=== PATIENT | female | born 2000 | race Caucasian/White ===

== ENCOUNTER 2020-09-29 20:43 | Emergency (ER) | payer OTHER ==
[~2020-09-29] VITALS: Ht 165.1 cm; Wt 79.4 kg
[2020-09-29 21:19] VITALS: BP 107/52
[2020-09-29] MEDS ORDERED: NACL 0.9% 1,000 ML IV SCH (22:10)
[2020-09-29 22:28] LABS: BASOPHILS % (AUTO) 0.2 % (0.0-2.0); EOSINOPHILS # (AUTO) 0.2 K/uL (0-0.4); EOSINOPHILS % (AUTO) 1.1 % (0.0-4.0); HEMATOCRIT 38.7 % (36-48); LYMPHOCYTES # (AUTO) 3.3 K/uL (2.5-16.5); LYMPHOCYTES % (AUTO) 22.7 % (20.5-51.1); MEAN CORPUSCULAR HEMOGLOBIN 31 pg (27-31); MEAN CORPUSCULAR HGB CONC 34 g/dL (33-37); MEAN CORPUSCULAR VOLUME 92.4 fL (80-94); MONOCYTES # (AUTO) 1.5 K/uL (0.8-1.0); MONOCYTES % (AUTO) 10.3 % (1.7-9.3); NEUTROPHILS # (AUTO) 9.5 K/uL (1.8-7.7); NEUTROPHILS % (AUTO) 65.7 % (42.2-75.2); PLATELET COUNT (AUTO) 336 K/uL (140-450); RED BLOOD CELL COUNT(AUTO) 4.19 MIL/uL (4.20-5.40); RED CELL DISTRIBUTION WIDTH 13.5 % (11.6-13.7); WHITE BLOOD COUNT (AUTO) 14.5 K/uL (4.8-10.8)
[2020-09-29 22:40] LABS: ALBUMIN 3.6 g/dL (3.4-5.0); ANION GAP 9.8 (8-16); CARBON DIOXIDE 27.8 mmol/L (21-32); CREATININE 0.9 mg/dL (0.6-1.3); POTASSIUM 3.6 mmol/L (3.5-5.1); TOTAL BILIRUBIN 0.3 mg/dL (0.0-1.0)
[2020-09-29 23:05] LABS: APPEARANCE,URINE SL CLOUDY (CLEAR); BILIRUBIN,URINE NEGATIVE (NEGATIVE); BLOOD, URINE 2+ (NEGATIVE); COLOR,URINE YELLOW (YELLOW); LEUKOCYTE ESTERASE ,URINE 1+ (NEGATIVE); NITRITE, URINE NEGATIVE (NEGATIVE); UGLUCOSE NEGATIVE (NEGATIVE)
[2020-09-29] MEDS ORDERED: ONDANSETRON 4 MG/2 ML VIAL IVP ONE (23:05)
[2020-09-29] MEDS ORDERED: MORPHINE SULFATE 4 MG/ML SYR IVP ONE (23:05)
[2020-09-30] MEDS ORDERED: KETOROLAC 30 MG/ML VIAL IVP ONE (00:35)
[2020-09-30] MEDS ORDERED: CEPH-588 PO (00:39)
[2020-09-30] MEDS ORDERED: ONDA-24 SL (00:39)
[2020-09-30] MEDS ORDERED: IBUP-2213 PO (00:39)
[2020-09-30] MEDS ORDERED: cefTRIAXone 1,000 MG VIAL ONE (00:48)
[2020-09-30 02:45] VITALS: BP 103/60
== END 2020-09-30 02:45 | disposition home or self-care (01) ==
LOC: MED 20:43
DX: N12 Tubulo-interstitial nephritis, not specified as acute or chronic (principal); Z79.899 Other long term (current) drug therapy
CPT/HCPCS: 36415; 74177; 76700; 80053; 81001; 83690; 84703; 85025; 87086; 96361; 96365; 96375; 99284; J0696; J1885; J2270; J2405; J7030; Q9967

== ENCOUNTER 2022-11-09 02:20 | Emergency (ER) | payer OTHER ==
[~2022-11-09] VITALS: Ht 165.1 cm; Wt 90.7 kg
[~2022-11-09 02:20] MED LIST: CEPH-588 PO; IBUP-2213 PO; ONDA-188 SL
[2022-11-09 02:28] VITALS: BP 120/83; PULSE 90; RESP 18; TEMP 99; O2SAT 99
--- NOTE | 2022-11-09 02:50 | NUR ---
Pt to bed 2
--- NOTE | 2022-11-09 03:02 | NUR ---
Patient resting in bed, A/Ox4, chest rise and fall symmetrical, no s/s of distress, on monitor.
--- NOTE | 2022-11-09 03:30 | NUR ---
Dr. Barboza assessing patient.
[2022-11-09 03:58] LABS: BASOPHILS # (AUTO) 0.1 K/uL (0.00-0.22); BASOPHILS % (AUTO) 0.7 % (0.0-2.0); EOSINOPHILS # (AUTO) 0.3 K/uL (0-0.4); EOSINOPHILS % (AUTO) 1.6 % (0.0-4.0); HEMATOCRIT 40.2 % (36-48); HEMOGLOBIN 13.4 g/dL (12.0-16.0); LYMPHOCYTES # (AUTO) 4.3 K/uL (2.5-16.5); LYMPHOCYTES % (AUTO) 26.3 % (20.5-51.1); MEAN CORPUSCULAR HEMOGLOBIN 29 pg (27-31); MEAN CORPUSCULAR HGB CONC 33 g/dL (33-37); MEAN CORPUSCULAR VOLUME 88.4 fL (80-94); MONOCYTES # (AUTO) 1.4 K/uL (0.8-1.0); MONOCYTES % (AUTO) 8.5 % (1.7-9.3); NEUTROPHILS # (AUTO) 10.2 K/uL (1.8-7.7); NEUTROPHILS % (AUTO) 62.9 % (42.2-75.2); PLATELET COUNT (AUTO) 334 K/uL (140-450); RED BLOOD CELL COUNT(AUTO) 4.55 MIL/uL (4.20-5.40); RED CELL DISTRIBUTION WIDTH 13.9 % (11.6-13.7); WHITE BLOOD COUNT (AUTO) 16.2 K/uL (4.8-10.8)
[2022-11-09 04:21] LABS: ALBUMIN 3.5 g/dL (3.4-5.0); ANION GAP 15.5 (8-16); CARBON DIOXIDE 26.2 mmol/L (21-32); CREATININE 0.7 mg/dL (0.6-1.3); POTASSIUM 3.7 mmol/L (3.5-5.1); TOTAL BILIRUBIN 0.4 mg/dL (0.0-1.0)
[2022-11-09] MEDS ORDERED: KETOROLAC 30 MG/ML VIAL IVP ONE (04:40)
--- NOTE | 2022-11-09 05:20 | NUR ---
Patient resting in bed, A/Ox4, chest rise and fall symmetrical, no s/s of distress, on monitor.
[2022-11-09] MEDS ORDERED: ONDANSETRON 4 MG/2 ML VIAL IVP ONE (05:25)
[2022-11-09] MEDS ORDERED: NACL 0.9% 1,000 ML IV ONE (05:25)
[2022-11-09] MEDS ORDERED: MORPHINE SULFATE 4 MG/ML SYR IVP ONE ×2 (05:25→08:40)
--- NOTE | 2022-11-09 06:07 | NUR ---
Patient resting in bed, A/Ox4, chest rise and fall symmetrical, no s/s of distress, on monitor.
[2022-11-09] MEDS ORDERED: PIPERACILLIN/TAZOBACTAM 3.375 GM in DEXTROSE 5% 50 ML IV ONE (07:10)
--- NOTE | 2022-11-09 07:15 | NUR ---
Change of shift report given to AM Shift Nurse Amirah RN. AM Shift Nurse Amirah RN verbalized understanding of report, no further questions.
[2022-11-09 07:32] LABS: PROTHROMBIN TIME 9.9 secs (10.8-13.4)
--- NOTE | 2022-11-09 08:17 | NUR ---
Patient appears to be resting comfortably in bed. Vital Signs within normal limits. Respirations even and unlabored.
[2022-11-09] MEDS ORDERED: PIPERACILLIN/TAZOBACTAM 3.375 GM VIAL IV ONE (08:23)
--- NOTE | 2022-11-09 08:46 | NUR ---
Patient to be transferred to [facility]. Is being transferred due to HIGHER LEVEL OF CARE. Receiving facility has accepting physician and available space. ER physician has signed transfer form. Patient or responsible green party has agreed to transfer and signed form. Patient belongings inventoried and will be sent with patient. Copy of nursing notes, lab reports, EKG, Physicians Orders and X-rays to be sent with patient. Report called to ANGELICA GREER at receiving facility. [facility] ambulance service has been called for transfer. ETA is 1 HOUR 0945.
--- NOTE | 2022-11-09 09:35 | NUR ---
[facility] @ BEDSIDE FOR TRANSFER
--- NOTE | 2022-11-09 09:41 | NUR ---
REPORT GIVEN TO [facility], PT WILL BE TRANSPORTED TO [facility]
[2022-11-09 09:42] VITALS: BP 106/66; PULSE 84; RESP 18; TEMP 97.7; O2SAT 100
== END 2022-11-09 09:35 | disposition short-term general hospital (02) ==
LOC: MED 02:20
DX: R10.11 Right upper quadrant pain (principal); D72.829 Elevated white blood cell count, unspecified; Z79.899 Other long term (current) drug therapy
CPT/HCPCS: 36415; 76705; 80053; 81025; 83605; 83690; 85025; 85610; 87040; 96361; 96365; 96375; 96376; 99285; J1885; J2270; J2405; J2543; J7030; Q0092

== ENCOUNTER 2023-06-25 10:31 | Emergency (ER) | payer SELFPAY ==
[~2023-06-25] VITALS: Ht 165.1 cm; Wt 90.7 kg
[2023-06-25 10:34] VITALS: BP 116/71; PULSE 69; RESP 16; TEMP 97; O2SAT 99
[2023-06-25 10:46] VITALS: O2SAT 99
[2023-06-25 11:10] VITALS: O2SAT 99
[2023-06-25] MEDS: METOCLOPRAMIDE 10 MG TAB PO ONE (11:13)
[2023-06-25] MEDS ORDERED: MIRABULK PO (11:16)
[2023-06-25] MEDS ORDERED: HYDR-2734 TP (11:16)
[2023-06-25] MEDS: KETOROLAC 30 MG/ML VIAL IM ONE (11:17)
== END 2023-06-25 11:42 | disposition home or self-care (01) ==
LOC: MED 10:31
DX: K64.4 Residual hemorrhoidal skin tags (principal); R51.9 Headache, unspecified; Z79.899 Other long term (current) drug therapy
CPT/HCPCS: 81025; 96372; 99283; J1885; J8597; Q0163